=== PATIENT | female | born 1955 | race Caucasian/White ===

== ENCOUNTER 2017-04-16 06:20 | Day surgery (SDC) | payer BC ==
[2017-04-10 17:22] VITALS: BMI 24.0
[2017-04-16] MEDS ORDERED: BACITRACIN 3.5 GM OPTHALMIC OINT TUBE ONE (07:10)
[2017-04-16] MEDS ORDERED: PROPOFOL 20 ML ONE ×7 (07:10→09:14)
[2017-04-16] MEDS ORDERED: POVIDONE-IODINE 5% OPHTHALMIC PREP 30 ML SOLUTION ONE (07:10)
[2017-04-16] MEDS ORDERED: BUPIVACAINE HCL/PF 0.5% (5MG/ML) 10 ML VIAL ONE (07:10)
[2017-04-16] MEDS ORDERED: SUCCINYLCHOLINE CHLORIDE 200 MG/10 ML VIAL ONE (07:10)
[2017-04-16] MEDS ORDERED: TETRACAINE 0.5% OPHTH SOLN 2 ML BOTTLE ONE (07:10)
[2017-04-16] MEDS ORDERED: LIDOCAINE 1%/EPI 1:100000 (20 ML MULTI DOSE VIAL) ONE (07:10)
[2017-04-16] MEDS ORDERED: MIDAZOLAM HCL 2 MG/2 ML SINGLE DOSE VIAL ONE ×2 (07:11)
[2017-04-16] MEDS ORDERED: CLINDAMYCIN PHOSPHATE 600 MG/4 ML VIAL ONE (08:08)
[2017-04-16] MEDS ORDERED: DEXAMETHASONE SOD PHOSPHATE 4 MG/1 ML VIAL ONE (08:31)
[2017-04-16] MEDS ORDERED: ONDANSETRON 4 MG/2 ML VIAL ONE (08:31)
[2017-04-16] MEDS ORDERED: oxyCODONE HCL 5 MG TABLET PO PRN (09:25)
[2017-04-16] MEDS ORDERED: ONDANSETRON 4 MG/2 ML VIAL IVPUSH PRN (09:25)
[2017-04-16] MEDS ORDERED: LACTATED RINGERS SOLUTION 1,000 ML IV SCH (09:30)
[2017-04-16] MEDS ORDERED: oxyCODONE HCL 5 MG TABLET ONE (10:55)
--- NOTE | 2017-04-16 12:26 | OP ---
DATE OF OPERATION: 04/16/2017 PREOPERATIVE DIAGNOSIS: Defect involving lateral right lower lid, right lateral canthus and beyond. POSTOPERATIVE DIAGNOSIS: Defect involving lateral right lower lid, right lateral canthus and beyond following basal cell carcinoma excision. PROCEDURE: 1. Debridement and tailoring of defect, right lower lid, right lateral canthus. 2. Skin-muscle flap from right lower lid toward right lateral canthus. 3. Myocutaneous flap from right anabaptism to the right lateral canthus. 4. Right lateral canthoplasty. SURGEON: Shae Decker MD ANESTHESIA: Local with sedation. ESTIMATED BLOOD LOSS: Approximately 3-5 mL. COMPLICATIONS: None. DESCRIPTION OF OPERATION: The patient was brought to the operating room and placed on the operating room table. Vital signs were monitored by Anesthesia. The wound was photographed. Tetracaine was placed in both eyes. It was determined that the defect involved the right lateral canthus right up to the right lateral canthal tendon and beyond the lateral canthus onto the cheek, as well as the lateral 30% to 40% of the right lower lid where the defect extended down to the septum with excision of skin and muscle. It was determined that a combined skin-muscle flap from the nasal portion of the lid and a myocutaneous flap from the superior anabaptism and canthus would be appropriate. Therefore, a high-arched, semi-circular flap was marked, extending from the defect out above the lateral canthal tendon to the eyebrow. The area was diffusely infiltrated with 2% Xylocaine, 1:100,000 epinephrine, Marcaine in a 2:1 mixture for a total of 8 mL in the lid, the canthus and the anabaptism. She was prepped and draped in the usual sterile fashion, exposing both eyes and the right ear if necessary. A high-arch myocutaneous flap was now incised with a 15 blade. The muscle was dissected off of the underlying fascial layers with gentle spreading, blunt dissection and sharp dissection in order to have rotation of the flap into the lateral portion of the lower eyelid without distraction on the lid. A skin-muscle flap was developed by incising the subciliary line along the nasal central and medial portion of the eyelid and then underlining the skin-muscle flap, which was advanced laterally. The skin-muscle flap was now sutured to the leading edge of the myocutaneous flap from the anabaptism with buried 5-0 chromic. Multiple buried 5-0 chromics were placed, anastomosing these two. The high arched myocutaneous flap was then secured to the deep fascial planes with a 5-0 Vicryl to support it. The skin of the subciliary incision and the medial nasal skin-muscle flap was closed with running 6-0 plain. The skin-muscle flap of the eyelid and the myocutaneous flap from the anabaptism were now anastomosed with interrupted 6-0 plain in plastic technique. Meticulous tailoring of the junction of the two flaps and the junction with the lower eyelid margin was necessary in order to re-create the lateral canthus, since the incision did extend to the margin into the lateral canthal tendon. Lateral canthoplasty was performed by meticulously tailoring the flaps in order to re-create an acute angle and normal positioning of the skin in the lateral canthus. The high arched defect was closed with subcuticular 5-0 chromic sutures. The standing cutaneous deformity was excised at the temporal end of the advanced flap. Above the flap, in order to equalize the arcs, and then, the right upper lid and right lateral canthal new tissue was closed with interrupted 6-0 plain suture in plastic technique. Meticulous attention again was paid to tailoring all of the flaps at the lateral canthus and the superior lid and inferior lid at the lateral canthus and commissure itself in order to create the lateral canthus in a natural state. Once the lateral canthus had been re-created, the inferior extension of the defect and flap were closed with a running interrupted 5-0 plain suture. The standing cutaneous deformity was excised at the inferior edge of this flap in order to close it smoothly. The superior lateral myocutaneous flap was closed with a combination of interrupted 6-0 plain running and interrupted 5-0 plain suture so that it would be most natural. Bacitracin ointment was placed on all the sutures on the subciliary line, the junction of the skin-muscle flap of the eyelid, the myocutaneous flap from the cheek and anabaptism, on the high arched flap lateral to the canthus and in the eye temporally. The patient was taken to the recovery room in stable condition. SHAE DECKER M.D. [id number]
[2017-04-16 13:06] VITALS: TEMP 97.9
[2017-04-16 14:11] VITALS: BP 124/73; PULSE 58
== END 2017-04-16 11:45 | disposition home or self-care (01) ==
LOC: FASU 06:20
PROVIDERS: ATTEND Ophthalmology
PROC: 0HX1XZZ Transfer Face Skin, External Approach (ICD-10-PCS; 2017-04-16)
PROC: 0KX10ZZ Transfer Facial Muscle, Open Approach (ICD-10-PCS; 2017-04-16)
PROC: 08BQ0ZZ Excision of Right Lower Eyelid, Open Approach (ICD-10-PCS; principal; 2017-04-16 08:16)
DX: H02.89 Other specified disorders of eyelid (principal); C44.112 Basal cell carcinoma of skin of right eyelid, including canthus
CPT/HCPCS: 94760